=== PATIENT | female | born 1970 | race Caucasian/White ===

== ENCOUNTER → 2017-07-09 | Outpatient (CLI) | payer OTHER ==
[~2017-07-09] VITALS: Ht 170.2 cm; Wt 77.1 kg
[~2017-07-09] MED LIST: ATOR20TA58 PO; C Q 10 PO; CHOL500045 PO; LORA0.5T96 PO
--- NOTE | 2017-07-09 10:26 | RAD ---
Indication left breast nodule. Note is made of recent mammography and the recommendation for biopsy of a mass at the 7:00 position of the left breast. Preliminary images were obtained and the known mass at the 7:00 position of the left breast, approximately 3 cm from the nipple, was reproduced. Medical Registrar ultrasound images were obtained. Image guided biopsy was discussed with the patient. The risks of infection and bleeding were outlined. Small possibility of pneumothorax was also discussed. The patient understood the risks associated with the procedure and wished to proceed. The skin was prepped and draped in the routine fashion. Local anesthesia was accomplished with 1% lidocaine. A 14-gauge coaxial system was used. Under ultrasound guidance 4 core samples were obtained. Following the biopsy a clip was deployed at the biopsy site. The retrieved material was placed in formaldehyde and transferred to pathology. Patient tolerated the procedure well. The biopsy site was dressed in routine fashion. Following the biopsy the patient was transferred to a dedicated mammographic suite. Conventional images of the breast were obtained. Biopsy clip appears appropriately positioned in the breast. The patient was discharged with appropriate instructions. Regardless of the pathology results a mammogram of the left breast is suggested in 6 months. IMPRESSION: Successful image guided biopsy mass left breast Regardless of the pathology results a mammogram in 6 months is advised
--- NOTE | 2017-07-13 12:19 | PATHOLOGY ---
PATHOLOGY REPORT * * * * * * * * FINAL DIAGNOSIS: Breast, "left breast nodule": - Apocrine metaplasia. (see comment). ([facility]:damon; 07/10/2017) COMMENT: The differential includes apocrine papillary metaplasia and an apocrine adenoma. There is no evidence of malignancy. This case was also reviewed by Dr. Meseret Johnson and Dr. Brayan Barney. ([facility]:damon; 07/10/2017) REPORT ELECTRONICALLY SIGNED BY: Garland Delong M.D. DATE/TIME: 07/13/2017 12:18 * * * * * * * * GROSS PATHOLOGY: Received in formalin labeled "Whitney Prieto, left breast," are multiple needle cores of yellow-romero fibrofatty tissue measuring 0.8 x 0.7 x 0.2 cm in aggregate dimensions. The tissue is submitted in its entirety in cassette A1. The cold ischemic time is 5 minutes. The total formalin fixation time is 24hrs. ([facility]; 07/09/17) INITIAL CPT CODE(S): A; 08899 Professional services performed by [email or web address] [address] Technical services performed by [email or web address] at [address] [place] [address] [address], [place] [address]. SPECIMEN(S) RECEIVED: A.Left breast nodule CLINICAL HISTORY: Left breast nodule PATIENT: WHITNEY PRIETO /AGE: 301/15/1970 (Age: 47) PATIENT #: [id number] ALT CASE #: SPECIMEN COLLECTION DATE: 07/09/2017 SPECIMEN RECEIVED DATE: 07/09/2017 [facility] - [address] [place] [address] - PHONE: [phone] * * * END OF REPORT * * *
== END | disposition home or self-care (01) ==
LOC: US 08:15 → EDUNIT# 09:00
PROVIDERS: ATTEND Nurse Practitioner
DX: N63 Unspecified lump in breast (principal); R92.8 Other abnormal and inconclusive findings on diagnostic imaging of breast
CPT/HCPCS: 19081; 76942; C1713; G0206; 77065